=== PATIENT | male | born 1960 | race American Indian/Alaskan Native ===

== ENCOUNTER 2017-03-11 10:24 | Emergency (ER) | payer MEDICARE, OTHER ==
[2017-03-11 10:51] VITALS: BMI 30.4
[2017-03-11 10:53] VITALS: RESP 16
[2017-03-11] MEDS ORDERED: Albuterol-Ipratrop 3 mg / 0.5 (3 ml) UD INH STA (11:24)
--- NOTE | 2017-03-11 11:29 | ED PDOC ---
HPI: General Adult Time Seen by Provider: 03/11/17 11:20 Chief Complaint (Provider): flu like symptoms History Per: Patient, Family History/Exam Limitations: no limitations Onset/Duration Of Symptoms: Days (1) Current Symptoms Are (Timing): Still Present Severity: Moderate Additional Complaint(s): 56yo male c/o sore throat last night, this morning progressed to body aches, productive cough, head pressure and malaise. Denies vomiting or diarrhea, notes mild nausea. Mild SOB, denies hemoptysis, syncope or neck pain. Past Medical History Reviewed: Historical Data, Nursing Documentation, Vital Signs Vital Signs: Last Vital Signs Temp 98.6 F 03/11/17 16:17 Pulse 82 03/11/17 16:17 Resp 16 03/11/17 16:17 BP 103/68 03/11/17 16:17 Pulse Ox 98 03/11/17 16:17 - Medical History PMH: Asthma (LAST ATTACK 2 MONTH AGO), Bipolar Disorder (takes medication), CAD , COPD, Depression, Fibromyalgia, Fractures (Right thumb fx 2013), HTN, Hypercholesterolemia, Rheumatoid Arthritis Denies: Alzheimer's Disease, HIV, Chronic Kidney Disease - Surgical History Surgical History: Hernia Repair, Tonsillectomy - Family History Family History: States: Unknown Family Hx - Living Arrangements Living Arrangements: With Family - Social History Current smoker - smoking cessation education provided: Yes (cigars) - Home Medications Home Medications: Ambulatory Orders Medication Instructions Recorded Montelukast Sodium 10 mg PO HS 01/11/14 Albuterol 0.083% [Albuterol 0.083% 3 ml IH Q6H PRN 06/12/15 Inhal Margaret (2.5 mg/3 ml) UD] Albuterol Sulfate [Proair Hfa] 2 puff IH BID PRN 06/12/15 Divalproex [Depakote DR] 250 mg PO BID 06/12/15 Pregabalin [Lyrica] 75 mg PO BID 06/12/15 Sertraline [Zoloft] 25 mg PO DAILY 06/12/15 Albuterol HFA [Ventolin HFA 90 1 - 2 puff IH Q4 PRN #1 inhaler 03/11/17 mcg/actuation (8 g)] Azithromycin [Zithromax] 250 mg PO DAILY #6 tab 03/11/17 Guaifenesin [Mucinex] 600 mg PO BID PRN #10 tab.er.12h 03/11/17 Ibuprofen [Motrin Tab] 600 mg PO Q6 PRN #15 tab 03/11/17 - Allergies Allergies/Adverse Reactions: Allergies Allergy/AdvReac Type Severity Reaction Status Date / Time coconut Allergy URTICARIA Verified 03/11/17 11:29 Review of Systems Constitutional: Positive for: Chills, Weakness, Malaise Cardiovascular: Negative for: Chest Pain, Palpitations Respiratory: Positive for: Cough, Wheezing. Negative for: Shortness of Breath Gastrointestinal: Positive for: Nausea. Negative for: Vomiting, Abdominal Pain Genitourinary Male: Negative for: Dysuria Musculoskeletal: Positive for: Other (+body aches). Negative for: Neck Pain Skin: Negative for: Rash, Lesions, Jaundice Neurological: Positive for: Headache. Negative for: Weakness, Numbness, Confusion Psych: Negative for: Anxiety Physical Exam - Reviewed Nursing Documentation Reviewed: Yes Vital Signs Reviewed: Yes - Physical Exam Appears: Positive for: Well, Non-toxic, No Acute Distress Head Exam: Positive for: ATRAUMATIC, NORMAL INSPECTION, NORMOCEPHALIC Skin: Positive for: Normal Color, Warm, DRY Eye Exam: Positive for: EOMI, Normal appearance, PERRL ENT: Positive for: Pharyngeal Erythema. Negative for: Tonsillar Swelling Neck: Positive for: Normal, Painless ROM Cardiovascular/Chest: Positive for: Regular Rate, Rhythm Respiratory: Positive for: Wheezing. Negative for: Respiratory Distress Gastrointestinal/Abdominal: Positive for: Bowel Sounds, Soft. Negative for: Tenderness, Guarding Extremity: Positive for: Normal ROM. Negative for: Swelling Neurologic/Psych: Positive for: Alert, Oriented. Negative for: Motor/Sensory Deficits - Laboratory Results Result Diagrams: 03/11/17 13:10 03/11/17 14:54 - ECG O2 Sat by Pulse Oximetry: 97 Medical Decision Making Medical Decision Making: workup for flu like illness initiated Check CXR, flu swab, initiate duoneb Disposition - Clinical Impression Clinical Impression: Influenza-like symptoms, Bronchitis - Patient ED Disposition Is Patient to be Admitted: No Counseled Patient/Family Regarding: Studies Performed, Diagnosis, Need For Followup, Rx Given - Disposition Referrals: [facility] [place] [Outside] Disposition: Routine/Home Disposition Time: 15:00 Condition: STABLE Additional Instructions: Drink plenty of fluids, take motrin for body aches or headache, use cough medicine as directed. Prescriptions: Albuterol HFA [Ventolin HFA 90 mcg/actuation (8 g)] 1 - 2 puff IH Q4 PRN #1 inhaler PRN Reason: Shortness Of Breath Azithromycin [Zithromax] 250 mg PO DAILY #6 tab Guaifenesin [Mucinex] 600 mg PO BID PRN #10 tab.er.12h PRN Reason: Cough Ibuprofen [Motrin Tab] 600 mg PO Q6 PRN #15 tab PRN Reason: Pain, Moderate (4-7) Instructions: Acute Bronchitis (ED) Forms: [employer] ([place])
[2017-03-11] MEDS ORDERED: Albuterol-Ipratrop 3 mg / 0.5 (3 ml) UD ONE (12:01)
[2017-03-11] MEDS ORDERED: Sodium Chloride 0.9% 1,000 ML IV STA (12:34)
--- NOTE | 2017-03-11 12:53 | RAD ---
HISTORY: Cough. COMPARISON: 08/27/2016 TECHNIQUE: Chest PA and lateral FINDINGS: LUNGS: Left lower lobe infiltrate consistent with acute pneumonia. This represents a new finding compared to the prior study. PLEURA: No significant pleural effusion identified. No pneumothorax apparent. CARDIOVASCULAR: Normal. OSSEOUS STRUCTURES: No significant abnormalities. VISUALIZED UPPER ABDOMEN: Normal. OTHER FINDINGS: None. IMPRESSION: New left lower lobe infiltrate/pneumonia.
[2017-03-11 13:19] LABS: BASO # 0.1 K/uL (0.0-0.2); BASO % 0.6 % (0.0-2.0); EOS % 0.4 % (0.0-4.0); HEMOGLOBIN 15.7 g/dL (12.0-18.0); LYMPH # 1.3 K/uL (1.0-4.3); LYMPH % 14.8 % (20.0-40.0); MEAN CORPUSCULAR HEMOGLOBIN 30.6 pg (27.0-31.0); MEAN PLATELET VOLUME 9.1 fl (7.2-11.7); MONO # 0.5 K/uL (0.0-0.8); MONO % 6.4 % (0.0-10.0); NEUT # 6.6 K/uL (1.8-7.0); NEUT % 77.8 % (50.0-75.0); NRBC % 0.1 % (0.0-0.0); RBC 5.14 Mil/uL (4.40-5.90); RED CELL DISTRIBUTION WIDTH 14.2 % (11.5-14.5); WHITE BLOOD COUNT 8.5 K/uL (4.8-10.8)
[2017-03-11 15:30] LABS: CALCIUM 9.5 mg/dL (8.4-10.2); GFR AFRICAN-AMERICAN > 60; GFR NON-AFRICAN AMERICAN > 60
[2017-03-11 15:31] LABS: ALB/GLOB RATIO 1.2 (1.0-2.1); ALBUMIN 4.1 g/dL (3.5-5.0); ALT/SGPT 33 U/L (21-72); AST/SGOT 43 U/L (17-59); BLOOD UREA NITROGEN 13 mg/dl (9-20)
[2017-03-11 16:17] VITALS: BP 103/68; PULSE 82; TEMP 98.6
[2017-03-17 13:44] VITALS: O2SAT 97
== END 2017-03-11 16:30 | disposition home or self-care (01) ==
LOC: H.ER 10:24
DX: J11.1 Influenza due to unidentified influenza virus with other respiratory manifestations (principal); J40 Bronchitis, not specified as acute or chronic; F17.200 Nicotine dependence, unspecified, uncomplicated; I10 Essential (primary) hypertension; J44.9 Chronic obstructive pulmonary disease, unspecified; Z86.59 Personal history of other mental and behavioral disorders; I25.10 Atherosclerotic heart disease of native coronary artery without angina pectoris
CPT/HCPCS: 71046; 80053; 85025; 87804; 94640; 96360; 96372; 99284; J1885; J7040

== ENCOUNTER 2017-09-08 11:13 | Emergency (ER) | payer MEDICARE, OTHER ==
[2017-09-08 11:14] VITALS: BMI 30.4
[2017-09-08] MEDS ORDERED: Albuterol-Ipratrop 3 mg / 0.5 (3 ml) UD INH STA (11:59)
[2017-09-08] MEDS ORDERED: Albuterol-Ipratrop 3 mg / 0.5 (3 ml) UD ONE (12:35)
[2017-09-08 12:38] LABS: BASO % 0.8 % (0.0-2.0); EOS # 0.1 K/uL (0.0-0.7); EOS % 1.2 % (0.0-4.0); HEMOGLOBIN 16.5 g/dL (12.0-18.0); LYMPH # 2.1 K/uL (1.0-4.3); LYMPH % 36.8 % (20.0-40.0); MEAN CELL VOLUME 91.6 fl (80.0-94.0); MEAN CORPUSCULAR HEMOGLOBIN 30.5 pg (27.0-31.0); MEAN CORPUSCULAR HGB CONC 33.3 g/dL (33.0-37.0); MEAN PLATELET VOLUME 8.3 fl (7.2-11.7); MONO # 0.4 K/uL (0.0-0.8); MONO % 8.1 % (0.0-10.0); NEUT % 53.1 % (50.0-75.0); RBC 5.42 Mil/uL (4.40-5.90); RED CELL DISTRIBUTION WIDTH 13.8 % (11.5-14.5); WHITE BLOOD COUNT 5.6 K/uL (4.8-10.8)
[2017-09-08 12:55] LABS: B-TYPE NATRIURETIC PEPTIDE 42.2 pg/ml (0-900)
[2017-09-08 12:56] LABS: BLOOD UREA NITROGEN 10 mg/dl (9-20); CALCIUM 9.9 mg/dL (8.4-10.2); GFR NON-AFRICAN AMERICAN > 60
--- NOTE | 2017-09-08 13:06 | ED PDOC ---
HPI: SOB/CHF/COPD Time Seen by Provider: 09/08/17 11:36 Chief Complaint (Nursing): Shortness Of Breath Chief Complaint (Provider): Shortness Of Breath History Per: Patient History/Exam Limitations: no limitations Onset/Duration Of Symptoms: Days (x1) Current Symptoms Are (Timing): Still Present Additional Complaint(s): 56 year old male with medical history of COPD, HTN and DM, arrives to the emergency department with complaints of shortness of breath and mild chest pain while having coffee with family this morning. He also reports some lightheadedness and dry cough ongoing for 3 days. Patient denies any LOC, vomiting, diarrhea, fever or chills. He reports using Nebulizer with minimal relief. PMD: [facility] Past Medical History Reviewed: Historical Data, Nursing Documentation, Vital Signs Vital Signs: Last Vital Signs Temp 98.8 F 09/09/17 13:17 Pulse 75 09/09/17 13:17 Resp 17 09/09/17 13:17 BP 129/85 09/09/17 13:17 Pulse Ox 97 09/09/17 13:17 - Medical History PMH: Asthma (LAST ATTACK 2 MONTH AGO), Bipolar Disorder (takes medication), CAD , COPD, Depression, Diabetes, Fibromyalgia, Fractures (Right thumb fx 2013), HTN , Hypercholesterolemia, Rheumatoid Arthritis Denies: Alzheimer's Disease, HIV, Chronic Kidney Disease - Surgical History Surgical History: Hernia Repair, Tonsillectomy - Family History Family History: States: Unknown Family Hx - Social History Current smoker - smoking cessation education provided: Yes Alcohol: None Drugs: Denies - Home Medications Home Medications: Ambulatory Orders Medication Instructions Recorded Divalproex [Depakote DR] 250 mg PO Q12 06/12/15 Albuterol HFA [Ventolin HFA 90 2 puff IH Q12 PRN 09/08/17 mcg/actuation (8 g)] Aspirin [Aspirin EC] 325 mg PO DAILY 09/08/17 Atorvastatin [Lipitor] 10 mg PO HS 09/08/17 Gabapentin [Neurontin] 600 mg PO HS 09/08/17 Lurasidone Hydrochloride [Latuda] 40 mg PO HS 09/08/17 DULoxetine [Cymbalta] 20 mg PO DAILY ecc 09/09/17 Fluticasone/Salmeterol 250/50 1 puff IH Q12 puff 09/09/17 [Advair Diskus 250/50] Montelukast [Singulair] 10 mg PO HS tab 09/09/17 - Allergies Allergies/Adverse Reactions: Allergies Allergy/AdvReac Type Severity Reaction Status Date / Time coconut Allergy URTICARIA Verified 09/08/17 11:21 Wells Criteria for PE - Wells Criteria for Pulmonary Embolism Clinical Signs and Symptoms of DVT: No P.E is #1 Diagnosis, or Equally Likely: No Heart Rate >100: No Immobilization at least 3 days;Surgery previous 4 weeks: No Previous, objectively diagnosed PE or DVT: No Hemoptysis: No Malignancy w/treatment within 6 months, or palliative: No Total Score: 0 Review of Systems ROS Statement: Except As Marked, All Systems Reviewed And Found Negative Constitutional: Negative for: Fever, Chills Cardiovascular: Positive for: Chest Pain (mild) Respiratory: Positive for: Cough (dry), Shortness of Breath Gastrointestinal: Negative for: Vomiting, Diarrhea Neurological: Positive for: Dizziness (lightheaded). Negative for: Other (LOC) Physical Exam - Reviewed Nursing Documentation Reviewed: Yes Vital Signs Reviewed: Yes - Physical Exam Appears: Positive for: No Acute Distress Head Exam: Positive for: ATRAUMATIC, NORMAL INSPECTION, NORMOCEPHALIC Skin: Positive for: Normal Color Eye Exam: Positive for: Normal appearance ENT: Positive for: Normal ENT Inspection. Negative for: Pharyngeal Erythema Neck: Positive for: Normal, Supple Cardiovascular/Chest: Positive for: Regular Rate, Rhythm, Chest Non Tender. Negative for: Murmur Respiratory: Positive for: Normal Breath Sounds. Negative for: Wheezing, Respiratory Distress Gastrointestinal/Abdominal: Positive for: Normal Exam, Soft. Negative for: Tenderness Back: Positive for: Vertebral Tenderness (lumbar). Negative for: L CVA Tenderness, R CVA Tenderness Extremity: Positive for: Normal ROM (upper/lower). Negative for: Pedal Edema ( bilateral) Neurologic/Psych: Positive for: Alert, Oriented. Negative for: Motor/Sensory Deficits - Laboratory Results Result Diagrams: 09/09/17 08:27 09/09/17 11:27 - ECG O2 Sat by Pulse Oximetry: 98 (RA) Pulse Ox Interpretation: Normal Medical Decision Making Medical Decision Making: Initial Impression: Shortness of breath; Cough Differential Diagnosis: COPD exacerbation R/O ACS, pulmonary embolism, CHF Initial Plan: * EKG * BNP * BMP * Troponin I * CBC * D Dimer * CXR * Duoneb 3ml INH Time: 1247 --Labs: no significant clinical abnormality. Negative D dimer. Time: 1332 --CXR FINDINGS: LUNGS: Clear. PLEURA: No pneumothorax or pleural fluid seen. CARDIOVASCULAR: No radiographic findings to suggest acute or significant cardiovascular disease. OSSEOUS STRUCTURES: No significant abnormalities. VISUALIZED UPPER ABDOMEN: Normal. OTHER FINDINGS: None. IMPRESSION: No active disease. No acute/significant interval changes. Scribe Attestation: Documented by Thuy Tomlinson, acting as a scribe for Vasyl Rose MD. Provider Scribe Attestation: All medical record entries made by the Scribe were at my direction and personally dictated by me. I have reviewed the chart and agree that the record accurately reflects my personal performance of the history, physical exam, medical decision making, and the department course for this patient. I have also personally directed, reviewed, and agree with the discharge instructions and disposition. Disposition - Clinical Impression Clinical Impression: COPD (chronic obstructive pulmonary disease), Chest pain - Patient ED Disposition Is Patient to be Admitted: No Doctor Will See Patient In The: ED Counseled Patient/Family Regarding: Studies Performed, Diagnosis - Disposition Disposition Time: 14:30 Condition: FAIR - Pt Status Changed To: Hospital Disposition Of: Observation - POA Present On Arrival: None
--- NOTE | 2017-09-08 13:34 | RAD ---
Date of service: 09/08/2017 PROCEDURE: CHEST RADIOGRAPH, 1 VIEW HISTORY: dyspnea COMPARISON: 03/11/2017. FINDINGS: LUNGS: Clear. PLEURA: No pneumothorax or pleural fluid seen. CARDIOVASCULAR: No radiographic findings to suggest acute or significant cardiovascular disease. OSSEOUS STRUCTURES: No significant abnormalities. VISUALIZED UPPER ABDOMEN: Normal. OTHER FINDINGS: None. IMPRESSION: No active disease. No acute/significant interval changes.
[2017-09-08] MEDS ORDERED: Albuterol-Ipratrop 3 mg / 0.5 (3 ml) UD INH PRN (14:45)
[2017-09-08] MEDS ORDERED: Albuterol 0.083% Inhal Sol (2.5 mg/3 mL) UD INH PRN (14:46)
--- NOTE | 2017-09-08 16:05 | CP.PCM.HP ---
History of Present Illness - History of Present Illness History of Present Illness: 56 m with PMH of COPD, asthma, HTN controlled without medication, RA and fibromyalgia, presented to ER due to Right chest pain and SOB. Pt state that pain started around 9:30AM today while he was sitting watching TV. Pt state that the pain is 4 out of 10 in severity, its sharp stabbing pain that comes and goes, radiate from the lateral side of chest to medial and its located 4cm under the nipple line. Pt state the pain started 1 year ago after he had a surgery on his shoulder, and since then it come and goes, mostly after he get stressed. Pt state this time the pain is worst and its still present thats why he decided to present to ER. Pt also complain of lightheaded and dry cough. Pt denies having Trauma, Falls, Fever,dizziness, LOC, abdominal pain, diarrhea, constipation, dysuria, polyuria. PCP: Dr. Edwards Allergy: coconut Medication: Advair, ProAir, Nebulizer albuterol, Atrovastatin, Depakote, Zoloft , Gabapentine. PMH: COPD, Asthma, HTN, RA, Fibromyalgia PSH: RIght shoulder surgery Social: chronic cigar smoker for 10 year, drink socially, denies drugs. ED Vitals : WNL except RR: 27 PE: WNL Lab: WNL, Troponin negative EKG: SInus bradycardia, No acute ST changes, no QT prolongation. Xray: No acute disease Med: Duneb 3mg, Methylprednisolone Pt was admitted for COPD Exacerbation management. Present on Admission - Present on Admission Any Indicators Present on Admission: No Review of Systems - Review of Systems All systems: reviewed and no additional remarkable complaints except - Constitutional Constitutional: absent: Chills, Daytime Sleepiness, Fever, Sleep Apnea - EENT Eyes: As Per HPI. absent: Photophobia, Loss of Vision Ears: absent: Ear Discharge, Ear Pain, Dizziness Nose/Mouth/Throat: Nasal Congestion, Nasal Discharge, Sinus Pain. absent: Nasal Obstruction, Nose Pain, Sinus Pressure - Cardiovascular Cardiovascular: Chest Pain, Chest Pain at Rest. absent: Chest Pain with Activity, Palpitations - Respiratory Respiratory: Cough - Gastrointestinal Gastrointestinal: absent: Abdominal Pain, Belching, Bloating, Diarrhea - Genitourinary Genitourinary: absent: Dysuria, Nocturia, Urinary Urgency, Freq UTI - Musculoskeletal Musculoskeletal: absent: Back Pain, Muscle Cramps, Muscle Weakness, Numbness, Tingling - Neurological Neurological: absent: Behavioral Changes, Burning Sensations, Confusion, Dizziness - Psychiatric Psychiatric: absent: Behavioral Changes, Change in Appetite - Endocrine Endocrine: absent: Fatigue, Flushing - Hematologic/Lymphatic Hematologic: As Per HPI Past Patient History - Infectious Disease Hx of Infectious Diseases: None - Past Medical History & Family History Past Medical History?: Yes - Past Social History Alcohol: None Drugs: Denies - CARDIAC Hx Hypercholesterolemia: Yes Hx Hypertension: Yes - PULMONARY Hx Asthma: Yes (LAST ATTACK 2 MONTH AGO) Hx Chronic Obstructive Pulmonary Disease (COPD): Yes - NEUROLOGICAL Hx Alzheimer's Disease: No - HEENT Hx HEENT Problems: No - RENAL Hx Chronic Kidney Disease: No - ENDOCRINE/METABOLIC Hx Endocrine Disorders: No - HEMATOLOGICAL/ONCOLOGICAL Hx Human Immunodeficiency Virus (HIV): No - INTEGUMENTARY Hx Dermatological Problems: No - MUSCULOSKELETAL/RHEUMATOLOGICAL Hx Fractures: Yes (Right thumb fx 2013) Hx Rheumatoid Arthritis: Yes - GASTROINTESTINAL Hx Gastrointestinal Disorders: No - GENITOURINARY/GYNECOLOGICAL Hx Genitourinary Disorders: No - PSYCHIATRIC Hx Bipolar Disorder: Yes (takes medication) Hx Depression: Yes - SURGICAL HISTORY Hx Tonsillectomy: Yes - ANESTHESIA Hx Anesthesia: Yes Hx Anesthesia Reactions: No Hx Malignant Hyperthermia: No Meds Allergies/Adverse Reactions: Allergies Allergy/AdvReac Type Severity Reaction Status Date / Time coconut Allergy URTICARIA Verified 09/08/17 11:21 Physical Exam - Constitutional Appears: Well, Non-toxic, No Acute Distress - Head Exam Head Exam: ATRAUMATIC, NORMAL INSPECTION, NORMOCEPHALIC - Eye Exam Eye Exam: EOMI, Normal appearance, PERRL Pupil Exam: NORMAL ACCOMODATION, PERRL - ENT Exam ENT Exam: Mucous Membranes Moist, Normal Exam - Neck Exam Neck exam: Positive for: Normal Inspection - Respiratory Exam Respiratory Exam: Clear to Auscultation Bilateral, Rales, NORMAL BREATHING PATTERN - Cardiovascular Exam Cardiovascular Exam: REGULAR RHYTHM, +S1, +S2 Additional comments: Chest no sign of lesion/ vesicle or any sign of trauma, No tenderness upon palpation. - GI/Abdominal Exam GI & Abdominal Exam: Normal Bowel Sounds, Soft. absent: Tenderness - Extremities Exam Extremities exam: Positive for: full ROM, normal inspection. Negative for: calf tenderness - Back Exam Back exam: NORMAL INSPECTION. absent: CVA tenderness (L), CVA tenderness (R) - Neurological Exam Neurological exam: Alert, Oriented x3 - Psychiatric Exam Psychiatric exam: Normal Affect, Normal Mood - Skin Skin Exam: Dry, Intact, Normal Color, Warm Results - Vital Signs Recent Vital Signs: Last Vital Signs Temp 98.1 F 09/08/17 11:28 Pulse 61 09/08/17 11:28 Resp 27 H 09/08/17 11:28 BP 126/84 09/08/17 11:28 Pulse Ox 98 09/08/17 14:39 - Labs Result Diagrams: 09/08/17 12:23 09/08/17 12:23 Labs: Laboratory Results - last 24 hr 09/08/17 09/08/17 09/08/17 12:23 12:23 12:23 WBC 5.6 RBC 5.42 Hgb 16.5 Hct 49.6 MCV 91.6 MCH 30.5 MCHC 33.3 RDW 13.8 Plt Count 179 MPV 8.3 Neut % (Auto) 53.1 Lymph % (Auto) 36.8 [place] % (Auto) 8.1 Eos % (Auto) 1.2 Baso % (Auto) 0.8 Neut # (Auto) 3.0 Lymph # (Auto) 2.1 [place] # (Auto) 0.4 Eos # (Auto) 0.1 Baso # (Auto) 0.0 D-Dimer, Quantitative 76 Sodium 140 Potassium 4.6 Chloride 104 Carbon Dioxide 24 Anion Gap 17 BUN 10 Creatinine 1.2 Est GFR ( Amer) > 60 Est GFR (Non-Af Amer) > 60 Random Glucose 95 Calcium 9.9 Troponin I < 0.0120 NT-Pro-B Natriuret Pep 42.2 Assessment & Plan - Assessment and Plan (Free Text) Assessment: 56 m with PMH of COPD, asthma, HTN controlled without medication,Depression, RA and fibromyalgia, presented to ER due to Right chest pain and SOB. Admitted for COPD exacerbation. COPD/asthma Exacerbation Fluticasone/Salmeterol Singulair albuterol sulfate PRN Albuterol/Ipratropium PRN Monitor vital Nasal Congestion Flonase Fibromyalgia Continue Depakote Depression Continue Cymbalta HTN Controlled without medication DVT prophilaxis Levonox
[2017-09-08] MEDS: Divalproex 250 mg DR(BID formulation) PO SCH (18:18)
[2017-09-09] MEDS: Fluticasone-Salmeterol 250-50mcg Diskus IH SCH ×2 (02:36→09:45)
[2017-09-09 08:47] LABS: BASO % 0.1 % (0.0-2.0); HEMOGLOBIN 16.8 g/dL (12.0-18.0); LYMPH # 1.7 K/uL (1.0-4.3); LYMPH % 19.3 % (20.0-40.0); MEAN CELL VOLUME 89.9 fl (80.0-94.0); MEAN CORPUSCULAR HEMOGLOBIN 30.7 pg (27.0-31.0); MEAN CORPUSCULAR HGB CONC 34.1 g/dL (33.0-37.0); MEAN PLATELET VOLUME 8.8 fl (7.2-11.7); MONO # 0.3 K/uL (0.0-0.8); MONO % 3.3 % (0.0-10.0); NEUT # 6.9 K/uL (1.8-7.0); NEUT % 77.3 % (50.0-75.0); RBC 5.48 Mil/uL (4.40-5.90); RED CELL DISTRIBUTION WIDTH 13.6 % (11.5-14.5)
[2017-09-09] MEDS ORDERED: Enoxaparin 40 mg Syringe SC SCH (09:00)
--- NOTE | 2017-09-09 09:22 | CP.PCM.DIS ---
Provider - Provider Date of Admission: 09/08/17 14:37 Attending physician: Sagrario Rosenbaum MD Primary care physician: Dr. Edwards Time Spent in preparation of Discharge (in minutes): 15 Hospital Course - Lab Results Lab Results: Most Recent Lab Values WBC 9.0 K/uL (4.8-10.8) D 09/09/17 08:27 RBC 5.48 Mil/uL (4.40-5.90) 09/09/17 08:27 Hgb 16.8 g/dL (12.0-18.0) 09/09/17 08:27 Hct 49.2 % (35.0-51.0) 09/09/17 08: MCV 89.9 fl (80.0-94.0) 09/09/17 08: MCH 30.7 pg (27.0-31.0) 09/09/17 08: MCHC 34.1 g/dL (33.0-37.0) 09/09/17 08: RDW 13.6 % (11.5-14.5) 09/09/17 08:27 Plt Count 220 K/uL (130-400) 09/09/17 08:27 MPV 8.8 fl (7.2-11.7) 09/09/17 08:27 Neut % (Auto) 77.3 % (50.0-75.0) H 09/09/17 08:27 Lymph % (Auto) 19.3 % (20.0-40.0) L 09/09/17 08: [place] % (Auto) 3.3 % (0.0-10.0) 09/09/17 08:27 Eos % (Auto) 0.0 % (0.0-4.0) 09/09/17 08:27 Baso % (Auto) 0.1 % (0.0-2.0) 09/09/17 08:27 Neut # (Auto) 6.9 K/uL (1.8-7.0) 09/09/17 08:27 Lymph # (Auto) 1.7 K/uL (1.0-4.3) 09/09/17 08:27 Page # (Auto) 0.3 K/uL (0.0-0.8) 07/24/18 08:27 Eos # (Auto) 0.0 K/uL (0.0-0.7) 09/09/17 08:27 Baso # (Auto) 0.0 K/uL (0.0-0.2) 09/09/17 08:27 D-Dimer, Quantitative 76 ng/mlDDU (0-230) 09/08/17 12:23 Sodium 140 mmol/l (132-148) 09/08/17 12:23 Potassium 4.6 MMOL/L (3.6-5.0) 09/08/17 12:23 Chloride 104 mmol/L (98-107) 09/08/17 12:23 Carbon Dioxide 24 mmol/L (22-30) 09/08/17 12:23 Anion Gap 17 (10-20) 09/08/17 12:23 BUN 10 mg/dl (9-20) 09/08/17 12:23 Creatinine 1.2 mg/dl (0.8-1.5) 09/08/17 12:23 Est GFR ( Amer) > 60 09/08/17 12:23 Est GFR (Non-Af Amer) > 60 09/08/17 12:23 Random Glucose 95 mg/dL (75-110) 09/08/17 12:23 Calcium 9.9 mg/dL (8.4-10.2) 09/08/17 12:23 Troponin I < 0.0120 ng/mL (0.00-0.120) 09/09/17 08:27 NT-Pro-B Natriuret Pep 42.2 pg/ml (0-900) 09/08/17 12:23 - Hospital Course Hospital Course: 6 m with PMH of COPD, asthma, HTN controlled without medication, RA and fibromyalgia, presented to ER due to Right chest pain and SOB. Pt is admitted for COPD exacerbation. Pt was treated medically and evaluated for ACS. Vitals were monitored, Lab were drawn, xray and EKG were done. Vital and Labs were WNL , Xray and EKG no acute disease, NSR. Pt improved with medication for COPD management, Pt is comfortable and denies any other complain. Pt is comfortable to go home F/U with Dr Garcia in 1 Week. Discharge Exam - Head Exam Head Exam: ATRAUMATIC, NORMAL INSPECTION, NORMOCEPHALIC - Eye Exam Eye Exam: EOMI, Normal appearance, PERRL Pupil Exam: NORMAL ACCOMODATION, PERRL - Neck Exam Neck exam: Full Rom - Respiratory Exam Respiratory Exam: Clear to PA & Lateral, Rales, NORMAL BREATHING PATTERN, UNREMARKABLE. absent: Decreased Breath Sounds - Cardiovascular Exam Cardiovascular Exam: REGULAR RHYTHM, +S2 - GI/Abdominal Exam GI & Abdominal Exam: Normal Bowel Sounds, Unremarkable. absent: Distended, Mass - Extremities Exam Extremities exam: full ROM, normal inspection Additional comments: Tenderness on Right Shoulder when passive movement above 90 degree - Back Exam Back exam: FULL ROM. absent: CVA tenderness (L), CVA tenderness (R), tenderness - Neurological Exam Neurological exam: Alert, Normal Gait, Oriented x3 - Psychiatric Exam Psychiatric exam: Normal Affect, Normal Mood - Skin Skin Exam: Dry, Intact, Normal Color, Warm Discharge Plan - Follow Up Plan Condition: GOOD Disposition: HOME/ ROUTINE Patient education suggested?: Yes Instructions: Asthma (DC)
[2017-09-09] MEDS: Divalproex 250 mg DR(BID formulation) PO SCH (09:43)
--- NOTE | 2017-09-09 09:48 | CARD ---
APPROVED REPORT Date of service: 09/08/2017 EKG Measurement Heart [id number] <Conclusion> Sinus bradycardia Possible Left atrial enlargement Septal infarct, age undetermined Abnormal ECG
[2017-09-09 12:09] LABS: ALB/GLOB RATIO 1.4 (1.0-2.1); ALBUMIN 4.3 g/dL (3.5-5.0); ALT/SGPT 31 U/L (21-72); AST/SGOT 50 U/L (17-59); BLOOD UREA NITROGEN 15 mg/dl (9-20); GFR NON-AFRICAN AMERICAN > 60
[2017-09-09 13:19] VITALS: BP 129/85; PULSE 75; RESP 17; TEMP 98.8
[2017-09-09 15:06] VITALS: O2SAT 98
== END 2017-09-09 13:20 | disposition home or self-care (01) ==
LOC: H.ER 11:13 → H.ERHOLD 14:37 → UNDOADMOB 14:37 → UNDODISOB 09-09 13:20
DX: J44.1 Chronic obstructive pulmonary disease with (acute) exacerbation (principal); M06.9 Rheumatoid arthritis, unspecified; M79.7 Fibromyalgia; Z79.82 Long term (current) use of aspirin; Z79.899 Other long term (current) drug therapy; E11.9 Type 2 diabetes mellitus without complications; E78.00 Pure hypercholesterolemia, unspecified; F17.290 Nicotine dependence, other tobacco product, uncomplicated; F31.9 Bipolar disorder, unspecified; I10 Essential (primary) hypertension; I25.10 Atherosclerotic heart disease of native coronary artery without angina pectoris
CPT/HCPCS: 71045; 80048; 80053; 83880; 84484; 85025; 85378; 93005; 94640; 96372; 96374; 99285; G0378; J1650; J2930